=== PATIENT | female | born 1985 | race Two or more races ===

== ENCOUNTER 2020-08-04 13:59 | Emergency (ER) | payer OTHER, SELFPAY ==
--- NOTE | ~2020-08-04 | XR_ITS ---
EXAMINATION: XR CHEST CLINICAL INFORMATION: Cough. COMPARISON: 08/20/2018 chest radiographs. TECHNIQUE: Frontal view of the chest was obtained. FINDINGS: The lungs are clear. The heart and mediastinal structures are unremarkable. Mild mid thoracic dextro scoliosis is again seen without significant change. XR/XR chest 1V IMPRESSION: 1. No acute cardiopulmonary process. 2. Mild mid thoracic dextroscoliosis.
[2020-08-04 14:11] VITALS: BP 111/65; PULSE 68; RESP 16; TEMP 36.9; O2SAT 98; BMI 26.6
--- NOTE | 2020-08-04 15:14 | PC.NURSE ---
attempt to swab pt. this rn could not get swab into nose without pt hitting this rn and scratching this rn. 3-4 attempts made to obtain an accurate swab- unobtainable. pa aware states pt can attempt a self swab or she can be dc home d/t it being a non critical intervention.
--- NOTE | 2020-08-04 15:25 | ED.GENADULT ---
HPI - General Adult General Chief complaint: General Medical Stated complaint: covid symptoms Time Seen by Provider: 08/04/20 14:41 History of Present Illness HPI narrative: Patient complains of cough runny nose and body aches for 3 days, denies fever denies nausea vomiting MD complaint: Patient complains of cough runny nose and body aches Related Data Previous Rx's Medication Instructions Recorded azithromycin [Zithromax Z-Bassem] 250 mg PO DAILY 5 Days #6 tab 08/04/20 Allergies Allergy/AdvReac Type Severity Reaction Status Date / Time naproxen [From Naprosyn] Allergy Unknown NAUSEA & Unverified 03/10/20 15:29 VOMITING tramadol [TRAMADOL] Allergy Unknown ITCHING Unverified 03/10/20 15:29 Review of Systems Review of Systems: Positive for body aches runny nose and cough The patient denies fever chills dizziness weakness confusion no headache no neck pain no sore throat no chest pain no shortness of breath no abdominal pain no nausea no vomiting no diarrhea no burning with urination no rash Yes all other systems are reviewed and are negative [facility] Past Medical History Source: nursing notes reviewed Medical History (Updated 08/04/20 @ 15:27 by OLIVIA Wallace) No known health problems Social History Social History Alcohol intake: never Smoked in Last 30 Days: No Use of substances other than those prescribed or required for medical reasons: No Advance Directives: Yes Advance Directives Information Provided: No Advance Directives on File: No Physical Exam Vital Signs: Vital Signs: Last Vital Signs Temp 98.4 F 08/04/20 14:11 Pulse 68 08/04/20 14:11 Resp 16 08/04/20 14:11 BP 111/65 08/04/20 14:11 Pulse Ox 98 08/04/20 14:11 Body Mass Index 26.6 General appearance is no acute distress comfortable and cooperative The head is normocephalic atraumatic the eyes no redness no discharge The pharynx is clear with no redness exudate, mucous membranes moist Neck supple no lymphadenopathy Chest is clear to auscultation bilaterally with full symmetric breath sounds The heart rate regular no murmur Abdomen soft nontender Extremities no edema, no calf tenderness or swelling Neuro no motor deficit, no sensory deficit, gait is normal, speech an interaction are normal no facial asymmetry Course Course Course Narrative: Patient remains comfortable throughout visit, COVID test was negative but symptoms are still concerning for COVID Chest x-ray was negative Patient was discharged Medical Decision Making Lab Data Labs: Lab Results 08/04/20 Range/Units 15:19 Coronavirus (PCR) NEGATIVE (Negative) SARS-CoV-2 (PCR) Cancelled Influenza Type A (PCR) NEGATIVE (Negative) Influenza Type B (PCR) NEGATIVE (Negative) RSV RNA Qual (PCR) NEGATIVE (Negative) Discharge Plan Discharge Clinical Impression: Bronchitis Patient Disposition: Home, Self-Care Additional Instructions: X-ray looked normal It will be read by a radiologist later and I will call you if there is a change in the reading I will call you with COVID results which will be back within 2-3 hours There is a good chance to have COVID even if the test is negative as the test misses many cases We are treating with antibiotic for possibility of bronchitis Return any time any worse condition or any concerns Tylenol as needed for fever or pain Prescriptions: New azithromycin [Zithromax Z-Bassem] 250 mg tablet 250 mg PO DAILY 5 Days Qty: 6 RF: 0 Stand Alone Forms: Work/School Release Interventions: ED Discharge Assessment Last Done: 08/04/20 15:33 Discharge Date/Time: 08/04/20 15:33
--- NOTE | 2020-08-04 15:27 | PC.NURSE ---
pt offered self swab. pt states for staff to do it. jared pct attempted. partial r nare swab completed. pt unable to tolerate- grabbing at staff. sent per pa as is.
[2020-08-04 16:24] LABS: Influenza A PCR NEGATIVE (Negative); Influenza B PCR NEGATIVE (Negative); Resp Syncy Virus RNA Qual PCR NEGATIVE (Negative); SARS COV2 PCR INHOUSE NEGATIVE (Negative)
== END 2020-08-04 15:33 | disposition home or self-care (01) ==
PROVIDERS: Physician Assistant Medical; Emergency Provider Internal Medicine
DX: J40 Bronchitis, not specified as acute or chronic (principal); R05 Cough; M79.10 Myalgia, unspecified site; Z20.822 Contact with and (suspected) exposure to COVID-19
CPT/HCPCS: 0241U; 36415; 71045; 99283; U0003

== ENCOUNTER 2020-10-24 20:30 | Emergency (ER) | payer OTHER, SELFPAY ==
[2020-10-24 20:39] VITALS: BP 107/82; PULSE 82; RESP 16; TEMP 36.6; O2SAT 100; BMI 27.4
== END 2020-10-24 22:14 | disposition left against medical advice (07) ==
PROVIDERS: Emergency Provider Internal Medicine
DX: K92.1 Melena (principal)
CPT/HCPCS: 99281; 99282

== ENCOUNTER 2020-11-04 12:40 | Emergency (ER) | payer OTHER, SELFPAY ==
[2020-11-04 12:51] VITALS: BP 105/59; PULSE 66; RESP 18; TEMP 36.9; O2SAT 98; BMI 26.6
[2020-11-04 13:33] LABS: IDNOW Serial# 08D9AD1C; Strep A Nucleic Acid Negative (Negative)
[2020-11-04 13:41] LABS: COVID-19 Test Negative (Negative); IDNOW Serial# 9DD0AD1C
--- NOTE | 2020-11-04 13:59 | ED_ITS ---
HPI - General Adult General Chief complaint: Upper Respiratory Symptoms Stated complaint: sore throat Time Seen by Provider: 11/04/20 12:57 Source: patient Mode of arrival: ambulatory Limitations: no limitations History of Present Illness HPI narrative: Patient presents to ED for sore throat and body aches since yesterday. Patient states no coughing, fever, chills, headache, chest pain, or shortness of breath. Related Data Previous Rx's Medication Instructions Recorded azithromycin [Zithromax Z-Bassem] 250 mg PO DAILY 5 Days #6 tab 08/04/20 Allergies Allergy/AdvReac Type Severity Reaction Status Date / Time naproxen [From Naprosyn] Allergy Unknown NAUSEA & Verified 10/24/20 20:39 VOMITING tramadol [TRAMADOL] Allergy Unknown ITCHING Verified 10/24/20 20:39 Review of Systems Review of Systems: Yes all other systems are reviewed and are negative Constitutional: Constitutional: Reports as per HPI and Reports no additional constitutional complaints Eyes: Eyes: Reports as per HPI and Reports no additional eye complaints ENT: Reports system reviewed and no additional complaints, except as documented, Reports as per HPI and Reports sore throat Cardiovascular: Cardiovascular: Reports as per HPI and Reports no additional cardiovascular complaints Respiratory: Respiratory: Reports as per HPI and Reports no additional respiratory complaints Gastrointestinal: Gastrointestinal: Reports as per HPI and Reports no additional gastrointestinal complaints Genitourinary: Genitourinary: Reports no additional female genitourinary complaints and Reports as per HPI Musculoskeletal: Musculoskeletal: Reports no additional musculoskeletal complaints and Reports as per HPI Neurologic: Reports system reviewed and no additional complaints, except as documented and Reports as per HPI Psychiatric: Psychiatric: Reports no additional psychiatric complaints and Reports as per HPI [facility] Past Medical History Medical History (Updated 11/04/20 @ 17:40 by OLIVIA Carrera) No known health problems Social History Social History Alcohol intake: never Advance Directives: Yes Advance Directives Information Provided: No Advance Directives on File: No Patient : No Physical Exam Vital Signs: Vital Signs: Last Vital Signs Temp 98.5 F 11/04/20 12:51 Pulse 66 11/04/20 12:51 Resp 18 11/04/20 12:51 BP 105/59 L 11/04/20 12:51 Pulse Ox 98 11/04/20 12:51 Body Mass Index 26.6 Const: General: cooperative, healthy appearing, comfortable, no acute distress, well developed, alert, awake and Physically active Orientation/consciousness: patient oriented x3 HENMT: Head: Yes normal to inspection, Yes No palpable skull fracture present, Yes normocephalic, Yes atraumatic and Yes abrasion Eyes: General: appearance normal, both eyes and all related structures Neck: Neck: Yes normal visual inspection, Yes full ROM, Yes no lymphadenopathy, Yes no meningeal signs, Yes trachea midline, Yes supple and No tender Chest: Chest palpation & inspection: normal inspection of the chest and normal palpation of entire chest wall Resp: Effort & Inspection: normal respiratory effort and able to speak in complete sentences Auscultation: clear to auscultation bilaterally Cardio: Jugular venous distension: no JVD Heart sounds: S1 normal heart sound present and S2 normal heart sound present GI: Inspection: Yes normal to inspection and No abdominal wall ecchymosis Palpation (GI): Soft to palpation, not firm, nontender, no guarding and not rigid : General: No CVA tenderness Back/Spine/Pelvis: Back: no CVA tenderness, No CVA tenderness and No back tenderness Skin: General skin exam: no rashes or lesions noted and elasticity normal Neuro: General: patient oriented x3 and no meningeal signs Cranial nerves: Yes CN's II-XII intact bilaterally Extrem: General: Yes normal to inspection and Yes full ROM Psych: Appearance: grossly normal, well kempt and not disheveled Course Course Course Narrative: Sore throat. diagnosis is viral pharyngitis. patient refuse covid PCT. will do only abbot. Reevaluation(s) Reevaluation #1: Patient eloped from ED. Reevaluation #2: Patient was called and informed that covid and strep came back negative. Patient informed if symptoms worsened she should get retested in 72 hours or qaurantine Medical Decision Making [facility] Narrative Medical decision making narrative: Viral Pharyngitis Lab Data Labs: Lab Results 11/04/20 11/04/20 Range/Units 13:05 13:05 COVID-19 (DULCE MARIA) Negative (Negative) COVID-19 Clin Com See Note S. pyogenes GrpA DORYS Negative (Negative) Discharge Plan Discharge Clinical Impression: Acute viral pharyngitis Patient Disposition: Elopement Prescriptions: No Action azithromycin [Zithromax Z-Bassem] 250 mg tablet 250 mg PO DAILY 5 Days Qty: 6 RF: 0 Interventions: ED Discharge Assessment Last Done: 11/04/20 16:08 Discharge Date/Time: 11/04/20 16:10
== END 2020-11-04 16:10 | disposition left against medical advice (07) ==
PROVIDERS: Physician Assistant; Emergency Provider Emergency Medicine
DX: J02.8 Acute pharyngitis due to other specified organisms (principal); M79.10 Myalgia, unspecified site; Z79.899 Other long term (current) drug therapy; Z20.822 Contact with and (suspected) exposure to COVID-19
CPT/HCPCS: 36415; 87635; 87651; 99283

== ENCOUNTER 2021-06-06 12:45 | Outpatient (REF) | payer OTHER, SELFPAY | END 2021-06-06 12:46 | disposition home or self-care (01) | LOC: HO.LAB 12:45 | PROVIDERS: Visit Provider Internal Medicine | DX: Z20.822 Contact with and (suspected) exposure to COVID-19 (principal) | CPT/HCPCS: C9803; U0003; U0005 ==

== ENCOUNTER 2021-08-28 22:48 | Emergency (ER) | payer OTHER, SELFPAY ==
--- NOTE | 2021-08-28 | ECG_ITS ---
Test Reason : CHEST PAIN Blood Pressure : / mmHG Vent. Rate : 059 BPM Atrial Rate : 059 BPM P-R Int : 206 ms QRS Dur : 098 ms QT Int : 456 ms P-R-T Axes : 059 055 035 degrees QTc Int : 451 ms Sinus bradycardia Otherwise normal ECG When compared with ECG of 18-AUG-2019 23:33, No significant change was found Referred By: Generic ED Physician Electronically Signed By:AMA HUSAIN MD
[2021-08-28 23:02] VITALS: BP 136/74; PULSE 68; O2SAT 100
[2021-08-28 23:09] VITALS: BP 109/35; PULSE 66; RESP 18; TEMP 36.5; O2SAT 98; BMI 24.1
[2021-08-28 23:31] LABS: MANUAL DIFF FLAG NO
[2021-08-28 23:37] LABS: Basophils Percent Auto 0.3 % (0-2); Eosinophils Absolute Auto 0.2 X10*3/uL (0.0-0.4); Eosinophils Percent Auto 2.4 % (0-4); Hematocrit 34.9 % (37.0-47.0); Hemoglobin 10.9 g/dl (12.0-16.0); Imm Gran Abs Auto 0.02 X10*3/uL (0.00-0.03); Imm Gran Pct Auto 0.3 % (0.0-0.4); Lymphocytes Absolute Auto 2.7 X10*3/uL (1.2-4.9); Lymphocytes Percent Auto 35.1 % (20-40); Mean Corpuscular HGB Conc 31.2 g/dl (31.0-35.0); Mean Corpuscular Hemoglobin 26.9 pg (27.0-33.0); Mean Corpuscular Volume 86.2 fL (80.0-98.0); Mean Platelet Volume 10.5 fL (9.4-12.3); Monocytes Absolute Auto 0.7 X10*3/uL (0.1-1.2); Monocytes Percent Auto 9.2 % (2-11); Neutrophils Percent Auto 52.7 % (45-73); Platelet Count 275 X10*3/uL (160-400); Red Blood Count 4.05 X10*6/uL (4.20-5.50); Red Cell Distribution Width 12.3 % (11.0-16.0); White Blood Count 7.6 X10*3/uL (4.8-10.8)
[2021-08-28 23:53] LABS: Anion Gap 10 (12-20); Blood Urea Nitrogen 11 mg/dL (9-16); Calcium 8.7 mg/dL (8.4-10.2); Carbon Dioxide 29 mmol/L (22-29); Chloride 105 mmol/L (96-108); Estimated Glomerular Filt Rate > 60; Glucose Random 112 mg/dL (60-115); Potassium 3.9 mmol/L (3.3-5.1); Sodium 140 mmol/L (135-145)
[2021-08-28 23:59] LABS: Troponin-I High Sensitivity < 3.5 ng/L (<3.5-17.0)
== END 2021-08-29 02:36 | disposition left against medical advice (07) ==
LOC: HO.ED 08-29 02:33
PROVIDERS: Emergency Provider Emergency Medicine
DX: R07.9 Chest pain, unspecified (principal); R20.0 Anesthesia of skin
CPT/HCPCS: 36415; 80048; 84484; 85025; 93005; 99283

== ENCOUNTER 2023-03-28 07:36 | Outpatient (AMB) | payer OTHER, SELFPAY ==
[2023-03-28 07:53] VITALS: BP 102/60; BMI 26.6
--- NOTE | 2023-03-28 07:53 | A.OFFVIS_ITS ---
Intake Vital Signs 03/28/23 07:53 Height 5 ft 5 in Weight 160 lb BMI 26.6 BP 102/60 Intake Visit Reasons: Preg Consult/ok per industrial hygiene engineer Note: The patient agreed to use of a medical receptionist assistant during this encounter. Scribed for LYNDON Cason by Evelyne Barnes medical receptionist assistant, on 03/28/2023 at 8:00 am EST. Clinical Safety Specialist Required: No Information Interpreted: non-clinical & clinical Accompanied by: Self / Same As Patient Allergies naproxen [From Naprosyn] Allergy (Unknown, Verified 03/28/23 07:57) NAUSEA & VOMITING tramadol [TRAMADOL] Allergy (Unknown, Verified 03/28/23 07:57) ITCHING Is last menstrual period known: Yes Last menstrual period: 02/02/23 HPI HPI Comments History of Present Illness Details She is here today for a consult. LMP x1 day which is not her usual. Reports this is a unplanned and is accepting of keeping it. Denies taking PNV. Admits vaginal odor, pelvic cramping and spotting. Admits good appetite and hydrating well with water. Last she was induced; denies any other complications in her past pregnancies Reports taking Percocet in the past after having a back injury and admits taking Suboxone 8mg, that is not prescribed. Reports she has stopped using Marijuana since finding out she was . Denies any cervical surgeries in the past. 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 Positive test Missed menses No known health problems Surgical History (Updated 03/28/23 @ 07:59 by Mariann Medina CMA) History of lung surgery Social History (Updated 03/28/23 @ 08:00 by Mariann Medina CMA) Household Members: Children Housing: Apartment Alcohol intake: never Patient Tobacco Use Status: Current everyday Tobacco user Cigarettes Per Day: 5 Current occupational status: unemployed Sexual orientation: Straight/Heterosexual Gender identity: Female Female Reproductive History Menstrual Date of last menstrual period: 02/02/23 Total pregnancies: 5 Full term: 2 Number of Living Children: 2 Ab induced: 2 Physical Exam Vital Signs: Last Vital Signs BP 102/60 03/28/23 07:53 BMI result Body Mass Index 26.6 Const General: cooperative, healthy appearing, comfortable, no acute distress, well developed, alert and awake Other: cervix: post-LEEP appearance General: Yes bladder normal to palpation External Female Exam: normal external appearance and normal appearance of the urethra Speculum Exam - Vagina: normal appearance of the vagina, normal palpation and abnormal vaginal discharge white (thin) and frothy Speculum Exam - Cervix: normal appearance of the cervix and normal palpation Bimanual exam- vagina & uterus: normal bimanual exam, normal palpation, bladder normal to palpation, normal palpation and enlarged Bimanual Exam- Adnexa, other: normal adnexae and no masses Results AMB Test Urine AMB Test Urine Positive Last Edit by Mariann Medina CMA on 09:14 AMB Test Urine previously reported as Negative Mariann eMdina 03/28/23 09:14 Results Reviewed Results Reviewed: Laboratory Last Values [facility] Positive 03/28/23 08:03 Assessment & Plan Assessment & Plan (1) Missed menses: Code(s): N92.6 - Irregular menstruation, unspecified Plan: Discussed: OB US and labs ordered. Follow up in person for results. PNV sent to pharmacy. Advised to eat healthy and stay hydrated. Reviewed when to call for any VB or abdominal pain. Treatment for Suboxone use, follow up for care. Discussed to call the service here for any emergencies/deliveries to be directed to [facility]. All of her questions and concerns were addressed to the best of my ability and shared decision making. She is agreeable to plan of care. (2) Vaginal odor: Code(s): N89.8 - Other specified noninflammatory disorders of vagina Plan: BV testing and GC/CT panel done today. Await results and treat accordingly. (3) Positive test: Code(s): Z32.01 - Encounter for test, result positive (4) Pelvic pain affecting in first trimester, antepartum: Code(s): O26.891 - Other specified related conditions, first trimester; R10.2 - Pelvic and perineal pain Orders: Orders HCG Quantitative Today N92.6 - Irregular menstruation, unspecified, Z78.9 - Other specified health status Bacterial Vaginosis Panel Today Z32.01 - Encounter for test, result positive AMB HCG Urine Test Today Z32.02 - Encounter for test, result negative CT NG by PCR Today Z32.01 - Encounter for test, result positive US OB limited 04/04/23 O36.80X0 - with inconclusive viability, not applicable or unspecified Medications: New PNV,calcium 48-kvap-vqmky acid 27 mg iron- 1 mg ( Vitamins Plus Low Iron) 1 tab PO DAILY 90 tabs 4RF Coding Level of Care Code Est Pt Level 3 (14079) Diagnoses Missed menses N92.6 Vaginal odor N89.8 Positive test Z32.01 Pelvic pain affecting in first trimester, antepartum O26.891; R10.2
== END 2023-03-28 08:37 | disposition home or self-care (01) ==
PROVIDERS: PCP Internal Medicine; Visit Provider Advanced Practice Midwife
DX: N92.6 Irregular menstruation, unspecified (principal); N89.8 Other specified noninflammatory disorders of vagina; Z32.01 Encounter for pregnancy test, result positive; O26.891 Other specified pregnancy related conditions, first trimester; R10.2 Pelvic and perineal pain; Z32.02 Encounter for pregnancy test, result negative
CPT/HCPCS: 99213

== ENCOUNTER → 2023-03-28 07:36 | Outpatient (BNVA) | payer OTHER, SELFPAY | PROVIDERS: PCP Internal Medicine; Visit Provider Advanced Practice Midwife ==

== ENCOUNTER 2023-03-28 08:40 | Outpatient (REF) | payer OTHER, SELFPAY | END 2023-03-28 08:41 | disposition home or self-care (01) | LOC: HO.US 08:40 | PROVIDERS: PCP Internal Medicine; Visit Provider Advanced Practice Midwife | DX: Z34.91 Encounter for supervision of normal pregnancy, unspecified, first trimester (principal); Z3A.01 Less than 8 weeks gestation of pregnancy | CPT/HCPCS: 0353U; 76801; 76817; 81025; 87480; 87510; 87660; 99212 ==

== ENCOUNTER 2023-03-30 22:06 | Emergency (ER) | payer OTHER, SELFPAY ==
[2023-03-30 22:23] VITALS: BP 108/68; PULSE 83; RESP 18; TEMP 36.5; O2SAT 97; BMI 26.6
[2023-03-30 22:45] VITALS: BP 91/30; PULSE 72; RESP 18; TEMP 36.7; O2SAT 100
--- NOTE | 2023-03-30 22:48 | ED.PREGNANCY ---
HPI - General Chief complaint: Vaginal Bleeding Stated complaint: Vaginal bleeding, 8 weeks Time Seen by Provider: 03/30/23 22:41 Source: patient Mode of arrival: ambulatory Limitations: no limitations History of Present Illness HPI Narrative: Patient comes to the emergency room complaining of vaginal bleeding. Patient states that she is a at 6 weeks of gestational age. Patient states that 2 days ago she went to see her primary care physician/OB Gyne. An ultrasound was done, patient was told that the heart rate was low and he had a repeat ultrasound in 7 days. Today, patient was feeling well, at this time has no abdominal pain. States that she went to use the restroom, and she noted that she was passing blood clots. Related Data Home Medications Medication Instructions Recorded Confirmed No Known Home Meds 03/28/23 03/28/23 Previous Rx's Medication Instructions Recorded vitamin with calcium 1 tab PO DAILY #90 tabs 03/28/23 no.72-iron 27 mg-folic acid 1 mg tablet ( Vitamins Plus Low Iron) Allergies Allergy/AdvReac Type Severity Reaction Status Date / Time naproxen [From Naprosyn] Allergy Unknown NAUSEA & Verified 03/30/23 22:23 VOMITING tramadol [TRAMADOL] Allergy Unknown ITCHING Verified 03/30/23 22:23 Review of Systems Review of Systems: Constitutional : No Weight loss, No Fever, No Chills, No Night Sweats, No Fatigue, No Malaise ENT/Mouth : No Hearing loss, No Ear Pain, No Nasal Congestion, No Sinus Pain, No Hoarseness, No sore throat, No Rhinorrhea, No Swallowing Difficulty Eyes: No Eye Pain, No Swelling, No Redness, No Foreign Body, No Discharge, No Vision Changes Cardiovascular : No Chest Pain, No SOB, No Dyspnea on Exertion, No Orthopnea, No Edema, No Palpitations Respiratory : No Cough, No Sputum, No Wheezing, No Smoke Exposure, No Dyspnea Gastrointestinal : No Nausea, No Vomiting, No Diarrhea, No Constipation, No abdominal Pain, No Hematochezia, No Melena Genitourinary : Complaining of vaginal bleeding, No Dysuria, No Urinary Frequency, No Hematuria, No Urinary Incontinence, No Urgency, No Flank Pain, No Urinary Flow Changes, No Hesitancy Musculoskeletal : No joint pain, No Myalgias, No Joint Swelling Skin : No Skin Lesions, No rash Neuro : No Weakness, No Numbness, No Paresthesias, No Loss of Consciousness, No Dizziness, No Headache Psych : No Anxiety/Panic, No Depression, No SI/HI/AH/VH, No Social Issues, Heme/Lymph: No Bruising, No Bleeding,No Lymphadenopathy Endocrine : No Polyuria, No Polydipsia, No Temperature Intolerance [facility] Past Medical History Medical History 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 Positive test Missed menses No known health problems Surgical History (Updated 03/28/23 @ 07:59 by Mariann Medina CMA) History of lung surgery Social History Social History (Updated 03/28/23 @ 08:00 by Mariann Medina CMA) Household Members: Children Housing: Apartment Alcohol intake: never Patient Tobacco Use Status: Current everyday Tobacco user Cigarettes Per Day: 5 Smoked in Last 30 Days: Yes Use of substances other than those prescribed or required for medical reasons: No Advance Directives: No Advance Directives Information Provided: Yes Patient : Yes Current occupational status: unemployed Sexual orientation: Straight/Heterosexual Gender identity: Female Physical Exam Vital Signs: Vital Signs: Last Vital Signs Temp 98.0 F 03/31/23 00:04 Pulse 71 03/31/23 00:04 Resp 16 03/31/23 00:04 BP 101/49 L 03/31/23 00:04 Pulse Ox 99 03/31/23 00:04 O2 Del Method Room Air 03/31/23 00:04 BMI result Body Mass Index 26.6 Const: Other: Appearance: Alert. Oriented X3. No acute distress. Well-appearing Eyes: Pupils equal, round and reactive to light. ENT: Pharynx normal. Neck: Normal inspection. Neck supple. No lymph nodes noted. No crepitus CVS: Normal heart rate and rhythm. Pulses normal. Normal S1 and S2 Respiratory: No respiratory distress. Breath sounds normal. No Wheezing. No rales Abdomen: Soft and nontender. No rigidity. No distention. Skin: Skin warm and dry. Normal skin color. Normal skin turgor. Extremities: No lower extremity edema. No Lacerations. No Rash Neuro: Oriented X 3. No motor deficit. No sensory deficit. Moving all extremities. No slurred speech. CN 2 through 12 grossly intact Psych: calm, cooperative, normal affect Course Course Course Narrative: -all off of patient's labs and ultrasound pending Medical Decision Making Medical Decision Making MDM Narrative: -mental position of labs, normal white blood cell count, chemistry within normal limits, LFTs normal, hCG 2907 -ABO: O positive, RhoGAM not indicated -ultrasound report, no significant change compared to ultrasound from 2 days ago. -on pelvic exam, seems that services approximately 2-3 mm questionably open, discussed with the patient that it is possible that patient may have a spontaneous miscarriage versus continuing with the . However, it is concerning that the heart rate is low -patient states she has an appointment next week with her OB Gyne -discussed with the patient if she has any significant vaginal bleeding, to return to the emergency room. Differential Diagnosis Differential Diagnoses: The differential diagnosis associated with the presentation includes (Threatened ,) Lab Data 03/30/23 23:21 03/30/23 23:21 Labs: Lab Results 03/30/23 03/30/23 Range/Units 23:21 23:46 WBC 10.1 (4.8-10.8) X10*3/uL RBC 3.60 L (4.20-5.50) X10*6/uL Hgb 10.0 L (12.0-16.0) g/dl Hct 31.0 L (37.0-47.0) % MCV 86.1 (80.0-98.0) fL MCH 27.8 (27.0-33.0) pg MCHC 32.3 (31.0-35.0) g/dl RDW 12.5 (11.0-16.0) % Plt Count 274 (160-400) X10*3/uL MPV 10.3 (9.4-12.3) fL Immature Gran % (Auto) 0.3 (0.0-0.4) % Neut % (Auto) 56.5 (45-73) % Lymph % (Auto) 31.0 (20-40) % [place] % (Auto) 9.5 (2-11) % Eos % (Auto) 2.3 (0-4) % Baso % (Auto) 0.4 (0-2) % Lymph # (Auto) 3.1 (1.2-4.9) X10*3/uL [place] # (Auto) 1.0 (0.1-1.2) X10*3/uL Eos # (Auto) 0.2 (0.0-0.4) X10*3/uL Baso # (Auto) 0.0 (0.0-0.2) X10*3/uL Abs Immat Gran (auto) 0.03 (0.00-0.03) X10*3/uL Absolute Neuts (auto) 5.7 (2.0-8.3) x10*3/uL Absolute Nucleated RBC 0.000 (0.0-0.012) X10*3/uL Nucleated RBC % (auto) 0.0 (0.0-0.2) /100WBC Sodium 139 (135-145) mmol/L Potassium 3.7 (3.3-5.1) mmol/L Chloride 107 (96-108) mmol/L Carbon Dioxide 25 (22-29) mmol/L Anion Gap 11 L (12-20) BUN 9 (9-16) mg/dL Creatinine 0.63 (0.5-1.4) mg/dL Estim Creat Clear Calc 119.6 Estimated GFR > 60 Random Glucose 80 (60-115) mg/dL Calcium 8.5 (8.4-10.2) mg/dL Total Bilirubin 0.2 (0.0-1.0) mg/dL AST 16 (5-31) U/L ALT 11 (0-31) U/L Alkaline Phosphatase 51 (39-117) U/L Total Protein 6.2 L (6.5-8.0) g/dL Albumin 3.2 L (3.5-5.0) g/dL Beta HCG, Quant 2917 mIU/mL Urine Color Yellow Urine Appearance Clear Urine pH 7.5 (5.0-9.0) Ur Specific [place] 1.015 (1.005-1.025) Urine Protein Negative (Neg-Trace) mg/dL Urine Glucose (UA) Negative (Negative) mg/dL Urine Ketones Negative (Negative) mg/dL Urine Blood Small (1+) H (Negative) Urine Nitrite Negative (Negative) Ur Leukocyte Esterase Moderate (2+) H (Negative) Urine RBC 0-2 (0-2) /HPF Urine WBC 6-10 (0-5) /HPF Ur Squamous Epith Cells 0-2 (0-2) /HPF Urine Bacteria None Seen (None Seen) Hyaline Casts 0-2 (0-2) /LPF Blood Type O Positive Discharge Plan Discharge Clinical Impression: Threatened miscarriage Patient Disposition: Home, Self-Care Instructions: Threatened Miscarriage (ED) Additional Instructions: Please follow-up with your primary care physician and OBGYN tomorrow. If you have any worsening or new symptoms, please return to the emergency room or call 911 Prescriptions: No Action No Known Home Meds Vitamin Plus Low Iron 27 mg iron- 1 mg tablet 1 tab PO DAILY Qty: 90 4RF
[2023-03-31 00:04] VITALS: BP 101/49; PULSE 71; RESP 16; TEMP 36.7; O2SAT 99
--- NOTE | 2023-03-31 01:00 | PC.NURSE ---
at bedside discussing pt care.
--- NOTE | 2023-03-31 01:17 | PC.NURSE ---
this rn assumed care. respirations even and unlabored. pt reports waking up yesterday morning with vaginal spotting, pt reports being 8 weeks at this time. pt reports filling on small pad, denies pain at this time. abdomen soft non tender to touch.
[2023-04-01 08:49] LABS: BV Int Neg Control Negative (Negative); BV Int Pos Control Positive (Positive)
== END 2023-03-31 01:19 | disposition home or self-care (01) ==
PROVIDERS: Emergency Provider Emergency Medicine; PCP Internal Medicine
DX: O20.0 Threatened abortion (principal); O36.8310 Maternal care for abnormalities of the fetal heart rate or rhythm, first trimester, not applicable or unspecified; O99.331 Smoking (tobacco) complicating pregnancy, first trimester; F17.210 Nicotine dependence, cigarettes, uncomplicated; Z3A.01 Less than 8 weeks gestation of pregnancy
CPT/HCPCS: 0353U; 36415; 76801; 76817; 80053; 81001; 84702; 85025; 86900; 86901; 87086; 87480; 87510; 87660; 99284

== ENCOUNTER 2023-04-02 21:57 | Emergency (ER) | payer OTHER, SELFPAY ==
[2023-04-02 22:23] VITALS: BP 111/56; PULSE 83; RESP 16; TEMP 36.8; O2SAT 100; BMI 26.9
--- NOTE | 2023-04-02 23:34 | MHC.EDTECH ---
Labs and Type N Screen were obtained and sent to lab, patient was banded, and placed back to waiting room.
== END 2023-04-03 01:21 | disposition left against medical advice (07) ==
PROVIDERS: Emergency Provider Emergency Medicine; PCP Internal Medicine
DX: O26.91 Pregnancy related conditions, unspecified, first trimester (principal); Z3A.08 8 weeks gestation of pregnancy; Z79.899 Other long term (current) drug therapy
CPT/HCPCS: 36415; 80048; 84702; 85025; 86850; 86900; 86901; 99282; 99283

== ENCOUNTER 2023-04-03 08:54 | Outpatient (REF) | payer OTHER, SELFPAY | END 2023-04-03 08:55 | disposition home or self-care (01) | LOC: HO.US 08:54 | PROVIDERS: Absent Provider Advanced Practice Midwife; Visit Provider Obstetrics & Gynecology | DX: O20.9 Hemorrhage in early pregnancy, unspecified (principal); Z78.9 Other specified health status | CPT/HCPCS: 36415; 76801; 76817; 84702; 99212 ==

== ENCOUNTER 2023-04-03 09:16 | Outpatient (REF) | payer OTHER, SELFPAY | END 2023-04-03 09:17 | disposition home or self-care (01) | LOC: HO.US 09:16 | PROVIDERS: PCP Internal Medicine; Visit Provider Advanced Practice Midwife | DX: Z13.89 Encounter for screening for other disorder (principal) ==

== ENCOUNTER 2023-04-03 11:02 | Outpatient (AMB) | payer OTHER, SELFPAY ==
[2023-04-03 11:03] VITALS: BP 100/60
--- NOTE | 2023-04-03 11:03 | MHC.OFFVIS ---
Intake Vital Signs 04/03/23 11:03 Height 5 ft 5 in BP 100/60 Intake Visit Reasons: Follow u/s and hcg Allergies naproxen [From Naprosyn] Allergy (Unknown, Verified 04/03/23 11:03) NAUSEA & VOMITING tramadol [TRAMADOL] Allergy (Unknown, Verified 04/03/23 11:03) ITCHING HPI HPI Comments History of Present Illness Details Presenting at 7 weeks of gestation with vaginal bleeding passage of blood clots . Pelvic cramping and bleeding slowed down over the last few hours HCG done on 03/30 was 2117, repeated on 04/02 was 1691 and repeated today dropped to 1176 Ultrasound done on 03/30 showed the following: IMPRESSION: 1. Single intrauterine gestation. heart rate 87 bpm which is low. This is similar to the prior exam of March 28, 2023. Continued follow-up recommended. 2. [place]-rump length 0.53 cm. This correlates to dating of 6 weeks 3 days. NORBERTO 11/20/2023. 3. 3. Enlarged yolk sac. Ultrasound done today showed the following: On transabdominal imaging there is an nonvisualization of distal sac, pole or yolk sac. No heart beat seen either. Incidental finding of a small fibroid measuring 2.1 x 1.1 x 1.7 cm Both ovaries are not visualized as well. US/US OB pelvic and transvaginal IMPRESSION: No intrauterine gestational sac or pole seen at this time. Small uterine fibroid measuring 2.1 x 1.3 x 1.71 cm. 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 Positive test Missed menses No known health problems Surgical History (Updated 03/28/23 @ 07:59 by Mariann Medina CMA) History of lung surgery Social History (Updated 03/28/23 @ 08:00 by Mariann Medina CMA) Household Members: Children Housing: Apartment Alcohol intake: never Patient Tobacco Use Status: Current everyday Tobacco user Cigarettes Per Day: 5 Current occupational status: unemployed Sexual orientation: Straight/Heterosexual Gender identity: Female Review of Systems Const All systems reviewed & are unremarkable except as noted in HPI and below Physical Exam Vital Signs: Last Vital Signs BP 100/60 04/03/23 11:03 General: Yes no CVA tenderness External Female Exam: normal external appearance and normal appearance of the urethra Speculum Exam - Vagina: normal appearance of the vagina, normal palpation, no lesions, no masses and other (Tissues per vagina sent to pathology) Speculum Exam - Cervix: normal appearance of the cervix, normal palpation, no lesions, no masses, nontender and Other cervical findings present (No evidence of active bleeding) Bimanual exam- vagina & uterus: normal bimanual exam, normal palpation, uterine size normal, normal palpation, uterine shape normal, No Cervical tenderness present and non-tender Bimanual Exam- Adnexa, other: normal adnexae Back/Spine/Pelvis Back: no CVA tenderness Assessment & Plan Assessment & Plan (1) Complete : Code(s): O03.9 - Complete or unspecified spontaneous without complication Plan: Discussed with the patient finding on pelvic exam, tissues and vagina no evidence of bleeding coming out of the cervix consistent with complete . Will send tissues to the pathology. Signs and symptoms of incomplete were given to the patient. Instructions given the patient to call or go to emergency room in case of vaginal bleeding, pelvic cramping, passage of blood clots, fever above 100.4 or any other concerns otherwise schedule a follow-up appointment in the office in 2 weeks with follow-up hCG quantitative;will follow hCG to non levels. All questions answered, the patient verbalized understanding Coding Level of Care Code Est Pt Level 3 (44111) Diagnoses Complete O03.9
== END 2023-04-03 11:39 | disposition home or self-care (01) ==
LOC: HO.HWS 11:02
PROVIDERS: PCP Internal Medicine; Visit Provider Obstetrics & Gynecology
DX: O03.9 Complete or unspecified spontaneous abortion without complication (principal)
CPT/HCPCS: 99213

== ENCOUNTER 2023-04-03 11:33 | Outpatient (REF) | payer OTHER, SELFPAY | END 2023-04-03 11:34 | disposition home or self-care (01) | LOC: HO.LNP 11:33 | PROVIDERS: Visit Provider Obstetrics & Gynecology | DX: O03.9 Complete or unspecified spontaneous abortion without complication (principal) | CPT/HCPCS: 88305 ==

== ENCOUNTER 2023-04-10 13:27 | Outpatient (REF) | payer OTHER, SELFPAY ==
[2023-04-10 14:09] LABS: HCG Quantitative 58 mIU/mL
== END 2023-04-10 13:28 | disposition home or self-care (01) ==
LOC: HO.LAB 13:27
PROVIDERS: PCP Internal Medicine; Visit Provider Obstetrics & Gynecology
DX: O03.9 Complete or unspecified spontaneous abortion without complication (principal)
CPT/HCPCS: 36415; 84702

== ENCOUNTER 2023-04-19 10:05 | Outpatient (AMB) | payer OTHER, SELFPAY ==
[2023-04-19 10:16] VITALS: BP 124/60; PULSE 78; RESP 17; O2SAT 97; BMI 25.9
--- NOTE | 2023-04-19 10:16 | MHC.PC.OV ---
Vital Signs 04/19/23 10:16 Height 5 ft 5 in Weight 155 lb 6 oz BMI 25.9 BP 124/60 Blood Pressure Location Lt brachial Position Sitting Respiration 17 Pulse 78 Pulse Source Pulse Oximeter Pulse Oximetry (%) 97 Oxygen Delivery Method Room Air Intake Visit Reasons: New patient-Requesting physical Intake Note: Patient is a new patient here to establish care for Sore throat. Pt has not seen a primary care for more than 5 years. Tobacco Cloth Reclaimer Required: No Accompanied by: Self / Same As Patient Allergies naproxen [From Naprosyn] Allergy (Unknown, Verified 04/19/23 10:52) NAUSEA & VOMITING tramadol [TRAMADOL] Allergy (Unknown, Verified 04/19/23 10:52) ITCHING Medication List - Last Reconciled 04/19/23 by Uri Rucker MD No Known Home Meds Tobacco use date assessed: 04/19/23 Dental Screening Dental Screen Date: 04/19/23 Did you have a dental visit in the last 12 months?: No Did you have a dental problem in the last 6 months where you did not have access to dental care?: No Was dental information given to patient?: Patient has dentist HPI New patient-Requesting physical HPI Details Patient comes in today to establish care - is a new patient to the practice States that she has not seen a doctor in over 5 years; has not had a PCP for as long as she can remember She was a patient of our practice back in the early 1999 but was discharged sometime in 2009 for a broke drug contract - tested negative for the Rx that she was supposedly on States that she is presently healthy overall with no significant past medical history or issues although she did suffer a miscarriage a couple of weeks ago - is seeing and following up with Dr. Dudley for this issue States that she has 2 grown children over 18 yrs old and they were all looking forward to having another addition to the family and are feeling sad about her losing the baby Adds that she tested positive for trichomonas infection earlier this month and [facility] Relates that she currently feels okay and has no other acute issues or complaints other than a mild sore throat that she woke up with this morning She denies any fever, headaches or dizziness Denies any recent cough/cold symptoms; denies any dysphagia Denies any chest pains, no SOB No nausea/vomiting, no abdominal pain No change in bowel habits noted Denies any acute urinary symptoms PFSH Medical History 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 Positive test Missed menses Surgical History History of lung surgery Family History (Updated 04/19/23 @ 12:00 by Uri Rucker MD) Other Family history non-contributory Social History Household Members: Children Housing: Apartment Alcohol intake: never Patient Tobacco Use Status: Current everyday Tobacco user Tobacco use type: Cigarette Cigarettes Per Day: 5 e-Cigarette/Vaping Use: Never Used service: No Current occupational status: unemployed Sexual orientation: Straight/Heterosexual Gender identity: Female Cognitive needs: No Hearing needs: No Vision needs: No Questionnaire PHQ-9 Over the last 2 weeks, how often have you been bothered by any of the following problems? 1. Little interest or pleasure in doing things: not at all 2. Feeling down, depressed, or hopeless: not at all 3. Trouble falling or staying asleep, or sleeping too much: not at all 4. Feeling tired or having little energy: not at all 5. Poor appetite or overeating: not at all 6. Feeling bad about yourself - or that you are a failure or have let yourself or your family down: not at all 7. Trouble concentrating on things, such as reading the newspaper or watching television: not at all 8. Moving or speaking so slowly that other people could have noticed. Or the opposite - being so fidgety or restless that you have been moving around a lot more than usual: not at all 9. Thoughts that you would be better off or of hurting yourself in some way: not at all Total score: 0 Depression Screening Interpretation: Negative Depression Screening Done: Yes 52671 - PHQ-9 Billing: Yes Source: Developed by Drs. Selvin Mendiola, Miracle Jones, Karan Allen and colleagues, with an educational hortencia from [employer]. Thrive Questionnaire Date Thrive assessed: 04/19/23 I am a: Patient What is your living situation today?: I have a steady place to live Within the past 12 months, did the food you bought not last and you didn't have the money to get more?: Never true Within the past 12 months, did you worry whether your food would run out before you got money to buy more?: Never true Do you have trouble paying for medicines?: No Do you have trouble getting transportation to medical appointments?: No Do you have trouble paying your heating and electricity bill?: No Do you have trouble taking care of your child, family member or friend?: No Do you have trouble with day-to-day activities such as bathing, preparing meals, shopping, managing finances, etc.?: No Are you currently unemployed and looking for a job?: No Are you interested in more education?: No Please select the resources that you would like help with: None Currently or been in a relationship where the following occur: no concerns reported AUDIT C Alcohol Use Questionnaire (AUDIT-C) 1. How often do you have a drink containing alcohol?: Monthly or less 2. How many drinks containing alcohol do you have on a typical day when you are drinking?: 1 or 2 3. How often do you have six or more drinks on one occasion?: Never Total Score: 1 Score Reviewed/Action Taken: Yes JANAK-7 AMB Questionnaire JANAK-7 Date JANAK - 7 assessed: 04/19/23 Feeling nervous, anxious, or on edge: 0 = Not at all Not being able to stop or control worryin = Not at all Worrying too much about different things: 0 = Not at all Trouble relaxin = Not at all Being so restless that it is hard to sit still: 0 = Not at all Becoming easily annoyed or irritable: 0 = Not at all Feeling afraid as if something awful might happen: 0 = Not at all Total JANAK-7 score (0-4 normal; 5-9 mild; 10-14 moderate; 15-21 severe): 0 Source: Developed by Drs. Selvin Mendiola, Miracle Jones, Karan Allen and colleagues, with an educational hortencia from [employer]. JANAK-7 Assessment Billing JANAK-7 Assessment Tool: JANAK-7 Assessment 73374 Review of Systems Const Denies chills, Denies fatigue, Denies fever(s), Denies headache(s) and Denies malaise Eyes Denies blurry vision, Denies change in vision, Denies irritation and Denies itchy eyes ENT Denies dysphagia, Denies dizziness, Denies otalgia, Denies headache(s), Denies nasal congestion, Denies neck pain, Denies odynophagia, Denies sinus pain and Denies sore throat Card Denies chest pain, Denies rapid heart rate, Denies irregular heart rhythm, Denies palpitations and Denies dyspnea Resp Denies chest congestion, Denies cough, Denies dyspnea and Denies wheezing GI Denies abdominal pain, Denies bloating, Denies constipation, Denies dysphagia, Denies heartburn, Denies diarrhea, Denies nausea, Denies odynophagia and Denies vomiting Denies hematuria, Denies urinary frequency, Denies dysuria, Denies urinary incontinence and Denies urinary urgency Musc Denies back pain, Denies arthralgias, Denies joint swelling, Denies muscle weakness and Denies neck pain Skin/Breast Denies breast pain, Denies breast mass, Denies change in pigmentation, Denies lesions, Denies rash and Denies unusual bruising Neuro Denies dizziness, Denies headache(s) and Denies paresthesias Psych Denies anxiety and Denies depression Endo Denies fatigue and Denies palpitations Saul/Lymph Denies easy bruising Aller/Immun Denies itchy eyes and Denies wheezing Physical exam (Primary Care) Vital Signs: Last Vital Signs Pulse 78 04/19/23 10:16 Resp 17 04/19/23 10:16 BP 124/60 04/19/23 10:16 Pulse Ox 97 04/19/23 10:16 Oxygen Delivery Method Room Air 04/19/23 10:16 BMI result Body Mass Index 25.9 Tobacco/Smoking Status: Tobacco use Status Tobacco use date assessed 04/19/23 04/19/23 10:27 Patient Tobacco Use Status Current everyday Tobacco 04/19/23 10:27 Tobacco use type Cigarette 04/19/23 10:27 e-Cigarette/Vaping Use Never Used 04/19/23 10:32 PHQ-9: PHQ-9 Score PHQ-9: Total score 0 04/19/23 10:32 Depression Screening Interpretation: Negative Thrive Assessment: Date of Thrive Assessment Date Thrive assessed 04/19/23 04/19/23 10:32 Currently or been in a relationship where the following occur: no concerns reported Const General: no acute distress, alert and awake Orientation/consciousness: patient oriented x3 [facility] Head: Yes normocephalic and Yes atraumatic Ears: external ears normal, TM's normal bilaterally and EAC's normal General nose exam: No nasal discharge present Face and sinus: Yes normal facial exam and Yes sinuses nontender Teeth and gingiva: dentition normal Throat: Yes posterior oropharynx normal and Yes tonsils normal (no TP congestion) Eyes Eyelids: Yes eyelids normal Conjunctivae: conjunctivae normal Pupils: Equal, round and reactive pupils present EOM: EOMs intact bilaterally Neck Neck: Yes no lymphadenopathy and Yes supple Thyroid: Thyroid normal (but slightly more prominent than normal diffusely) and nontender Resp Auscultation: clear to auscultation bilaterally, no rales and no wheezes Cardio Rate: regular rate Rhythm: regular rhythm Heart sounds: no murmurs GI Palpation (GI): Soft to palpation, nontender and No hepatosplenomegaly present Auscultation: normal bowel sounds General: Yes no CVA tenderness Back/Spine/Pelvis Back: no CVA tenderness Thoracic/Lumbar Spine: thoracic and lumbar spine normal to inspection Skin Lesions: no lesions Rashes: no rashes Neuro General: patient oriented x3, moves all extremities, no focal motor deficits and CN's II-XI intact bilaterally Cranial nerves: Yes Equal, round and reactive pupils present Cognition (Neuro): normal cognition Gait exam (Neuro): Normal gait present Extrem General: Yes no clubbing, cyanosis or edema Assessment and Plan Assessment & Plan (1) Annual physical exam: Code(s): Z00.00 - Encounter for general adult medical examination without abnormal findings Plan: Check labs She will be due to start annual breast cancer screening next year (2) Palpable thyroid: Code(s): E04.9 - Nontoxic goiter, unspecified Plan: Will check TFTs for further evaluation Discussed that this may be just due to her thin body habitus but if her TFTs are abnormal, will consider sending her for a thyroid US for further evaluation (3) Complete : Code(s): O03.9 - Complete or unspecified spontaneous without complication Plan: She recently suffered a miscarriage about 2 to 3 weeks ago - follow up with Dr. Dudley as scheduled Plan To return in 1 year for her next annual physical examination unless anything unusual comes up on her labs Orders: Orders Complete Blood Count Auto Diff Today I10 - Essential (primary) hypertension, Z00.00 - Encounter for general adult medical examination without abnormal findings UA CC w/rflx Micro + Cult Today R30.0 - Dysuria, Z00.00 - Encounter for general adult medical examination without abnormal findings Vitamin D 25-OH Total Today E55.9 - Vitamin D deficiency, unspecified, Z00.00 - Encounter for general adult medical examination without abnormal findings Free T4 (Free Thyroxine) Today E04.9 - Nontoxic goiter, unspecified Comprehensive [place]. Panel Fast Today E78.00 - Pure hypercholesterolemia, unspecified, Z00.00 - Encounter for general adult medical examination without abnormal findings Lipid Panel Today E78.00 - Pure hypercholesterolemia, unspecified, Z00.00 - Encounter for general adult medical examination without abnormal findings Thyroid Stimulating Hormone Today E04.9 - Nontoxic goiter, unspecified Coding Level of Care Code New Pt Prev Care 18-39yr(24148 Diagnoses Annual physical exam Z00.00 Palpable thyroid E04.9 Complete O03.9 Additional Codes JANAK-7 Assessment Billing - JANAK-7 Assessment Tool: JANAK-7 Assessment [id number] ([id number])
== END 2023-04-19 11:04 | disposition home or self-care (01) ==
PROVIDERS: PCP Internal Medicine; Visit Provider Internal Medicine
DX: Z00.00 Encounter for general adult medical examination without abnormal findings (principal); E04.9 Nontoxic goiter, unspecified; O03.9 Complete or unspecified spontaneous abortion without complication
CPT/HCPCS: 99385

== ENCOUNTER 2023-04-19 11:10 | Outpatient (REF) | payer OTHER, SELFPAY ==
[2023-04-19 11:25] LABS: MANUAL DIFF FLAG NO
[2023-04-19 12:01] LABS: Basophils Percent Auto 0.5 % (0-2); Eosinophils Absolute Auto 0.2 X10*3/uL (0.0-0.4); Eosinophils Percent Auto 2.5 % (0-4); Hematocrit 38.3 % (37.0-47.0); Imm Gran Abs Auto 0.03 X10*3/uL (0.00-0.03); Imm Gran Pct Auto 0.4 % (0.0-0.4); Lymphocytes Absolute Auto 2.2 X10*3/uL (1.2-4.9); Lymphocytes Percent Auto 28.1 % (20-40); Mean Corpuscular HGB Conc 31.3 g/dl (31.0-35.0); Mean Corpuscular Hemoglobin 27.8 pg (27.0-33.0); Mean Corpuscular Volume 88.9 fL (80.0-98.0); Mean Platelet Volume 11.5 fL (9.4-12.3); Monocytes Absolute Auto 0.6 X10*3/uL (0.1-1.2); Monocytes Percent Auto 8.4 % (2-11); Neutrophils Absolute Auto 4.6 x10*3/uL (2.0-8.3); Neutrophils Percent Auto 60.1 % (45-73); Platelet Count 276 X10*3/uL (160-400); Red Blood Count 4.31 X10*6/uL (4.20-5.50); Red Cell Distribution Width 12.4 % (11.0-16.0); White Blood Count 7.6 X10*3/uL (4.8-10.8)
[2023-04-19 12:42] LABS: Alanine Aminotransferase 13 U/L (0-31); Alkaline Phosphatase 48 U/L (39-117); Anion Gap 9 (12-20); Aspartate Amino Transferase 16 U/L (5-31); Bilirubin Total 0.5 mg/dL (0.0-1.0); Blood Urea Nitrogen 7 mg/dL (9-16); Carbon Dioxide 27 mmol/L (22-29); Chloride 107 mmol/L (96-108); Cholesterol 163 mg/dL (<200); Estimated Glomerular Filt Rate > 60; Glucose Fasting 98 mg/dL (60-99); HDL Cholesterol 47 mg/dL (>40); LDL Cholesterol Calculated 94 mg/dL (<100); Potassium 4.4 mmol/L (3.3-5.1); Sodium 139 mmol/L (135-145); Total Protein 6.6 g/dL (6.5-8.0); Triglycerides 110 mg/dL (<150)
[2023-04-19 12:47] LABS: HCG Quantitative 7 mIU/mL
[2023-04-19 12:58] LABS: Free T4 (Free Thyroxine) 0.86 ng/dL (0.71-1.85); Thyroid Stimulating Hormone 0.64 uIU/mL (0.32-4.0); Vitamin D 25-OH Total 24.8 ng/mL (>30)
[2023-04-19 13:34] LABS: Appearance Urine Clear; Color Urine Yellow; Glucose Urine UA Negative (Negative); Leukocyte Esterase Urine Negative (Negative); Nitrite Urine Negative (Negative); PH 7.5 (5.0-9.0); Specific Gravity - Urine 1.015 (1.005-1.025); Urine Blood Negative (Negative); Urine Ketones Negative (Negative); Urine Protein Negative (Neg-Trace)
== END 2023-04-19 11:11 | disposition home or self-care (01) ==
LOC: HO.LAB 11:10
PROVIDERS: Absent Provider Obstetrics & Gynecology; PCP Internal Medicine; Visit Provider Internal Medicine
DX: Z00.00 Encounter for general adult medical examination without abnormal findings (principal); O03.9 Complete or unspecified spontaneous abortion without complication; E55.9 Vitamin D deficiency, unspecified; E04.9 Nontoxic goiter, unspecified; R30.0 Dysuria; E78.00 Pure hypercholesterolemia, unspecified; I10 Essential (primary) hypertension
CPT/HCPCS: 36415; 80053; 80061; 81003; 82306; 84439; 84443; 84702; 85025

== ENCOUNTER 2023-07-11 13:04 | Outpatient (AMB) | payer OTHER, SELFPAY ==
--- NOTE | 2023-07-11 13:05 | MHC.OFFVIS ---
Intake Vital Signs 07/11/23 13:15 Height 5 ft 5 in Weight 157 lb BMI 26.1 BP 118/76 Intake Visit Reasons: vaginal infection Threshing Operator Required: No Information Interpreted: clinical only Rehabilitation Services Counselor: Rehabilitation Services Counselor Present Allergies naproxen [From Naprosyn] Allergy (Unknown, Verified 07/11/23 13:16) NAUSEA & VOMITING tramadol [TRAMADOL] Allergy (Unknown, Verified 07/11/23 13:16) ITCHING Medication List - Last Reconciled 07/11/23 by Meilna Leblanc CNM No Known Home Meds Is last menstrual period known: Yes Last menstrual period: 06/26/23 HPI vaginal infection HPI Details Patient is here at our [facility] site, for problem visit today she is got a vaginal odor that smells fishy and that really bothers her she called the OBGYN office and had a conversation about self-care and admits that she does douche and use soap and everything. She did have this a couple of times before and the last time she was treated with metronidazole twice a day for 7 days and things were perfect after that she later also shared that she had had trichomoniasis diagnosed at that exam as well that was around the time that a nonviable was being assessed and diagnosed patient had a miscarriage and says that in a visit with Dr. Dudley he was able to remove all the (POCs), She said previous to this she is to get all of her care at [facility] but she does not think she has been seen in years. She does not remember when she would have had her last Pap smear other than she thought that is what was done in the emergency room and up at 501 when she did have speculum exams. She is actively trying to have a baby she has a history of 2 vaginal births years ago at [facility]. 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 Positive test Missed menses Surgical History History of lung surgery Family History Other Family history non-contributory Social History Household Members: Children Housing: Apartment Alcohol intake: never Patient Tobacco Use Status: Current everyday Tobacco user Tobacco use type: Cigarette Cigarettes Per Day: 5 e-Cigarette/Vaping Use: Never Used service: No Current occupational status: unemployed Sexual orientation: Straight/Heterosexual Gender identity: Female Cognitive needs: No Hearing needs: No Vision needs: No Female Reproductive History Menstrual Age of Menarche: 10 Duration of menses: 3-5 days Date of last menstrual period: 06/26/23 control method: none Total pregnancies: 3 Full term: 2 Date of last pap smear: 05/06/23 (per mpatient,2022,negative) History of abnormal pap smear: No Physical Exam Vital Signs: Last Vital Signs BP 118/76 07/11/23 13:15 BMI result Body Mass Index 26.1 Other: External exam within normal limits vagina pink moist healthy appearing with a scant white discharge Multiparous cervix has slight appearance that could be consistent with history of a LEEP. Patient denies remembering or having any such procedure or abnormal Pap in her past history. External Female Exam: normal external appearance and normal appearance of the urethra Speculum Exam - Vagina: normal appearance of the vagina and normal vaginal discharge Speculum Exam - Cervix: normal appearance of the cervix and Cervical os closed Assessment & Plan Assessment & Plan (1) Vaginal odor: Code(s): N89.8 - Other specified noninflammatory disorders of vagina (2) Encounter for screening examination for sexually transmitted disease: Code(s): Z11.3 - Encounter for screening for infections with a predominantly sexual mode of transmission (3) Patient desires : Code(s): Z31.9 - Encounter for procreative management, unspecified (4) Hx of trichomonal vaginitis: Comment: March of 2023. patient was treated. partner was told he tested negative and did not get treated. Code(s): Z86.19 - Personal history of other infectious and parasitic diseases Plan Extensive discussion about the possibilities before the patient consented to an exam she was reluctant to have the speculum used. Teaching done about the common experience of changes to vaginal tanner of with sexual intercourse and therefore changes with pH and odor for us changes that occur commonly called bacterial vaginosis and treated with metronidazole. In addition discussion occurred when she disclosed about the past history of trichomoniasis about transmission of the organism from 1 person to another and that this 1 is a sexually transmitted infection and if 1 person in a relationship gets treated but the other person does not then it is extremely common and likely that they will just give it back and forth to each other until both were treated at the same time and avoid unprotected intercourse until all the organisms are so for little extra time is myers. Patient expressed surprised that her partner could have been tested and found to be negative but I did discuss how it is possible to have a false negative in this case but less likely to have a false-positive as this is a DNA test. Discussed that this is why when 1 person test positive for any of these STDs the other person in her relationship if there is just 1 should get treated irregardless of their own testing results. Discussed that the medication for both Gardnerella/BV and trichomoniasis currently are the same. And discuss precautions around taking the medication. I also let the patient know that we do not currently have a birthing center so if somebody comes to us with we are sending them to [facility] to deliver there babies, and that there are possible indications why we would not be able to offer care in the instance of some complications. Patient did not remember any abnormal Pap smears in the past or even in the recent ones for that matter and believes they were all done at [facility]. I did tell the patient that her cervix did have the appearance of a LEEP but she did not remember having any such procedure. She does need a Pap smear so she needs to schedule an annual exam. She can make the appointment with anyone she wishes. Patient is on the portal and a depth that using it and I told her to expect testing results by tomorrow. Pres[facility] [address] [facility] for her. Orders: Orders CT NG by PCR Today Z01.419 - Encounter for gynecological examination (general) (routine) without abnormal findings Bacterial Vaginosis Panel Today Z20.2 - Contact with and (suspected) exposure to infections with a predominantly sexual mode of transmission Medications: New metronidazole 500 mg PO Q12H 14 tabs 0RF Coding Level of Care Code Est Pt Level 3 (45693) Diagnoses Vaginal odor N89.8 Encounter for screening examination for sexually transmitted disease Z11.3 Patient desires Z31.9 Hx of trichomonal vaginitis Z86.19
[2023-07-11 13:15] VITALS: BP 118/76; BMI 26.1
== END 2023-07-11 14:02 | disposition home or self-care (01) ==
LOC: HO.HWSM 13:04
PROVIDERS: PCP Internal Medicine; Visit Provider Advanced Practice Midwife
DX: N89.8 Other specified noninflammatory disorders of vagina (principal); Z11.3 Encounter for screening for infections with a predominantly sexual mode of transmission; Z31.9 Encounter for procreative management, unspecified; Z86.19 Personal history of other infectious and parasitic diseases
CPT/HCPCS: 99213

== ENCOUNTER 2023-07-11 13:04 | Outpatient (REF) | payer OTHER, SELFPAY ==
[2023-07-12 03:45] LABS: CT PCR NOT DETECTED (Not Detect.); NG PCR NOT DETECTED (Not Detect.)
[2023-07-12 15:18] LABS: BV Int Neg Control Negative (Negative); BV Int Pos Control Positive (Positive)
== END 2023-07-11 13:05 | disposition home or self-care (01) ==
LOC: HO.LAB 13:04
PROVIDERS: PCP Internal Medicine; Visit Provider Advanced Practice Midwife
DX: Z01.419 Encounter for gynecological examination (general) (routine) without abnormal findings (principal); Z20.2 Contact with and (suspected) exposure to infections with a predominantly sexual mode of transmission; N89.8 Other specified noninflammatory disorders of vagina
CPT/HCPCS: 0353U; 87480; 87510; 87660; 99212

== ENCOUNTER 2024-01-13 11:08 | Outpatient (AMB) | payer OTHER, SELFPAY ==
--- NOTE | 2024-01-13 11:09 | A.OFFVIS_ITS ---
Vital Signs 01/13/24 11:11 Height 5 ft 5 in Weight 154 lb 5.177 oz BMI 25.7 Intake Visit Reasons: vaginal odor Solutions Sales Executive Required: No Information Interpreted: non-clinical & clinical Filer And Sander: Filer And Sander Present (Mariann CABRALESJuanito) Accompanied by: Self / Same As Patient Allergies naproxen [From Naprosyn] Allergy (Unknown, Verified 01/13/24 11:11) NAUSEA & VOMITING tramadol [TRAMADOL] Allergy (Unknown, Verified 01/13/24 11:11) ITCHING Is last menstrual period known: Yes Last menstrual period: 12/30/23 HPI Comments Details: The patient is presenting complaining of vaginal discharge associated with foul odor, no other associated symptoms, vaginal itching or any other complaint [facility] Medical History 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 Positive test Missed menses Surgical History History of lung surgery Family History Other Family history non-contributory Social History Household Members: Children Housing: Apartment Alcohol intake: never Patient Tobacco Use Status: Current everyday Tobacco user Tobacco use type: Cigarette Cigarettes Per Day: 5 e-Cigarette/Vaping Use: Never Used service: No Current occupational status: unemployed Sexual orientation: Straight/Heterosexual Gender identity: Female Cognitive needs: No Hearing needs: No Vision needs: No Female Reproductive History Menstrual Age of Menarche: 10 Date of last menstrual period: 12/30/23 Review of Systems Const All systems reviewed & are unremarkable except as noted in HPI and below Physical Exam Vital Signs: BMI result Body Mass Index 25.7 General: Yes no CVA tenderness External Female Exam: normal external appearance and normal appearance of the urethra Speculum Exam - Vagina: normal appearance of the vagina, normal palpation, no lesions and no masses Speculum Exam - Cervix: normal appearance of the cervix, normal palpation, no lesions, no masses and nontender Bimanual exam- vagina & uterus: normal bimanual exam, normal palpation, uterine size normal, normal palpation, uterine shape normal, No Cervical tenderness present and non-tender Bimanual Exam- Adnexa, other: normal adnexae Back/Spine/Pelvis Back: no CVA tenderness Assessment & Plan Assessment & Plan (1) Bacterial vaginosis: Code(s): N76.0 - Acute vaginitis; B96.89 - Other specified bacterial agents as the cause of diseases classified elsewhere Category: Medical Plan: GC and chlamydia cultures with BV panel taken. Per CDC recommendation, will screen for STI, HepBs Ag, HIV, RPR, Hep C Ab ordered. Will treat with Flagyl 500 mg p.o. b.i.d. x 7 days, Instructions given to the patient to refrain from sexual activity or to use condoms consistently and correctly during the BV treatment regimen, not to douch, it might increase the risk for relapse, and to call if symptoms persist or recur. Orders: Orders Syphilis Screen Today B96.89 - Other specified bacterial agents as the cause of diseases classified elsewhere, N76.0 - Acute vaginitis Hepatitis C Antibody Today B96.89 - Other specified bacterial agents as the cause of diseases classified elsewhere, N76.0 - Acute vaginitis Hepatitis B Surface Antigen Today B96.89 - Other specified bacterial agents as the cause of diseases classified elsewhere, N76.0 - Acute vaginitis HIV Ab/Ag Today B96.89 - Other specified bacterial agents as the cause of diseases classified elsewhere, N76.0 - Acute vaginitis Medications: New metronidazole 500 mg PO BID 7 days 14 tabs 0RF Coding Level of Care Code Est Pt Level 3 (51257) Diagnoses Bacterial vaginosis N76.0; B96.89
[2024-01-13 11:11] VITALS: BMI 25.7
== END 2024-01-13 11:20 | disposition home or self-care (01) ==
PROVIDERS: PCP Internal Medicine; Visit Provider Obstetrics & Gynecology
DX: N76.0 Acute vaginitis (principal); B96.89 Other specified bacterial agents as the cause of diseases classified elsewhere
CPT/HCPCS: 99213

== ENCOUNTER 2024-01-13 11:08 | Outpatient (REF) | payer OTHER, SELFPAY ==
[2024-01-13 17:09] LABS: Bacterial Vaginosis PCR POSITIVE (Negative); Candida Group PCR NOT DETECTED (Not Detect); Candida glab krusei PCR NOT DETECTED (Not Detect); Trichomonas vaginalis PCR NOT DETECTED (Not Detect)
[2024-01-13 18:00] LABS: CT PCR NOT DETECTED (Not Detect.); NG PCR NOT DETECTED (Not Detect.)
== END 2024-01-13 11:09 | disposition home or self-care (01) ==
LOC: HO.LNP 11:08
PROVIDERS: PCP Internal Medicine; Visit Provider Obstetrics & Gynecology
DX: N76.0 Acute vaginitis (principal); B96.89 Other specified bacterial agents as the cause of diseases classified elsewhere
CPT/HCPCS: 0352U; 87491; 87591; 99212

== ENCOUNTER 2024-03-10 10:31 | Outpatient (REF) | payer OTHER, SELFPAY ==
[2024-03-11 05:08] LABS: CT PCR NOT DETECTED (Not Detect.); NG PCR NOT DETECTED (Not Detect.)
[2024-03-11 11:38] LABS: Bacterial Vaginosis PCR POSITIVE (Negative); Candida Group PCR NOT DETECTED (Not Detect); Candida glab krusei PCR NOT DETECTED (Not Detect); Trichomonas vaginalis PCR NOT DETECTED (Not Detect)
== END 2024-03-10 10:32 | disposition home or self-care (01) ==
LOC: HO.LNP 10:31
PROVIDERS: PCP Internal Medicine; Visit Provider Obstetrics & Gynecology
DX: N76.0 Acute vaginitis (principal); B96.89 Other specified bacterial agents as the cause of diseases classified elsewhere
CPT/HCPCS: 0352U; 87491; 87591; 99212

== ENCOUNTER 2024-03-10 10:31 | Outpatient (AMB) | payer OTHER, SELFPAY ==
[2024-03-10 10:48] VITALS: BMI 25.7
--- NOTE | 2024-03-10 10:48 | A.OFFVIS_ITS ---
Vital Signs 03/10/24 10:48 Height 5 ft 5 in Weight 154 lb 5.177 oz BMI 25.7 Intake Visit Reasons: vaginal discharge Registry Nurse Required: No Information Interpreted: non-clinical & clinical Parenting Skills Instructor: Parenting Skills Instructor Present (Mariann REAL) Accompanied by: Self / Same As Patient Allergies naproxen [From Naprosyn] Allergy (Unknown, Verified 03/10/24 11:01) NAUSEA & VOMITING tramadol [TRAMADOL] Allergy (Unknown, Verified 03/10/24 11:01) ITCHING HPI Comments Details: The patient is presenting complaining of vaginal discharge associated with foul odor, no other associated symptoms, vaginal itching or any other complaint The patient had 3 previous BV episodes since 04/15 that were treated with metronidazole the patient symptoms resolve and then recur [facility] Medical History 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 Positive test Missed menses Surgical History History of lung surgery Family History Other Family history non-contributory Social History Household Members: Children Housing: Apartment Alcohol intake: never Patient Tobacco Use Status: Current everyday Tobacco user Tobacco use type: Cigarette Cigarettes Per Day: 5 e-Cigarette/Vaping Use: Never Used service: No Current occupational status: unemployed Sexual orientation: Straight/Heterosexual Gender identity: Female Cognitive needs: No Hearing needs: No Vision needs: No Female Reproductive History Menstrual Age of Menarche: 10 Review of Systems Const All systems reviewed & are unremarkable except as noted in HPI and below Physical Exam Vital Signs: BMI result Body Mass Index 25.7 General: Yes no CVA tenderness External Female Exam: normal external appearance and normal appearance of the urethra Speculum Exam - Vagina: normal appearance of the vagina, normal palpation, no lesions and no masses Speculum Exam - Cervix: normal appearance of the cervix, normal palpation, no lesions, no masses and nontender Bimanual exam- vagina & uterus: normal bimanual exam, normal palpation, uterine size normal, normal palpation, uterine shape normal, No Cervical tenderness present and non-tender Bimanual Exam- Adnexa, other: normal adnexae Back/Spine/Pelvis Back: no CVA tenderness Assessment & Plan Assessment & Plan (1) Bacterial vaginosis: Code(s): N76.0 - Acute vaginitis; B96.89 - Other specified bacterial agents as the cause of diseases classified elsewhere Category: Medical Plan: GC and chlamydia cultures with BV panel taken. Will screen with fasting blood sugar and for STI, HepBs Ag, HIV, RPR, Hep C Ab ordered. Will treat with Flagyl 500 mg p.o. b.i.d. x 7 days, Instructions given to the patient to refrain from sexual activity or to use condoms consistently and correctly during the BV treatment regimen, not to douch, it might increase the risk for relapse, and to call if symptoms persist or recur. Instructions given the patient to schedule 1 week follow-up appointment if Trichomonas is negative and recurrent BV is documented will treat with the CDC recommended regimen for recurrent BV. All questions answered, the patient verbalized understanding Orders: Orders CT NG by PCR Today B96.89 - Other specified bacterial agents as the cause of diseases classified elsewhere, N76.0 - Acute vaginitis Bacterial Vaginosis Panel Today B96.89 - Other specified bacterial agents as the cause of diseases classified elsewhere, N76.0 - Acute vaginitis Coding Level of Care Code Est Pt Level 3 (26599) Diagnoses Bacterial vaginosis N76.0; B96.89
== END 2024-03-10 11:22 | disposition home or self-care (01) ==
LOC: HO.HWS 10:31
PROVIDERS: PCP Internal Medicine; Visit Provider Obstetrics & Gynecology
DX: N76.0 Acute vaginitis (principal); B96.89 Other specified bacterial agents as the cause of diseases classified elsewhere
CPT/HCPCS: 99213

== ENCOUNTER 2024-03-17 10:05 | Outpatient (AMB) | payer OTHER, SELFPAY ==
--- NOTE | 2024-03-17 10:06 | MHC.OFFVIS ---
Intake Visit Reasons: TV Results Allergies naproxen [From Naprosyn] Allergy (Unknown, Verified 03/10/24 11:01) NAUSEA & VOMITING tramadol [TRAMADOL] Allergy (Unknown, Verified 03/10/24 11:01) ITCHING HPI Comments Details: The patient is scheduled tele health visit as a follow-up. 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 Positive test Missed menses Surgical History History of lung surgery Family History Other Family history non-contributory Social History Household Members: Children Housing: Apartment Alcohol intake: never Patient Tobacco Use Status: Current everyday Tobacco user Tobacco use type: Cigarette Cigarettes Per Day: 5 e-Cigarette/Vaping Use: Never Used service: No Current occupational status: unemployed Sexual orientation: Straight/Heterosexual Gender identity: Female Cognitive needs: No Hearing needs: No Vision needs: No Female Reproductive History Menstrual Age of Menarche: 10 Review of Systems Const All systems reviewed & are unremarkable except as noted in HPI and below Reports as per HPI and Reports no additional complaints GI Reports no additional complaints Reports no additional complaints Telehealth Telehealth Telehealth Platform: Telephone Location of provider rendering services: practice address Location of patient: address on file Patient Identification confirmed using: Name, : Yes Telehealth method: video Patient verbally consented to treatment: Yes Patient verbally consented to billing insurance company: Yes Patient informed of any privacy concerns related to visit: Yes Assessment & Plan Assessment & Plan (1) Bacterial vaginosis: Comment: recurrent Code(s): N76.0 - Acute vaginitis; B96.89 - Other specified bacterial agents as the cause of diseases classified elsewhere Category: Medical Plan: Discussed with the patient that detection of certain BV-associated organisms has been associated with antimicrobial resistance and can be the cause of subsequent treatment failure. Limited data are available regarding optimal management strategies for women with persistent or recurrent BV. recommended treatment will use CDC guidelines to treat recurrent BV with metronidazole 500 mg twice daily for 7 days followed by intravaginal boric acid 600 mg daily for 21 days and then suppressive regimen is monthly oral metronidazole 2g administered with fluconazole 150 mg for 4 months; this regimen reduced the incidence of BV and promoted colonization with normal vaginal tanner. I spent a total of 20 minutes reviewing the chart, talking to the patient via video and documenting in the medical record. Medications: New metronidazole Start 4 tablets x1 per month for 4 months, to be started in 4 weeks 2,000 mg (4 x 500 mg) PO ONCE 1 day 4 tabs 3RF metronidazole 500 mg PO BID 7 days 14 tabs 0RF fluconazole Taken 1 tablet a month for 4 months to be started in 4 weeks 150 mg PO ONCE 1 day 1 tab 3RF Coding Level of Care Code Tele Est Pt Level 1 (55358) Diagnoses Bacterial vaginosis N76.0; B96.89
== END 2024-03-17 12:10 | disposition home or self-care (01) ==
LOC: HO.HWS 10:05
PROVIDERS: PCP Internal Medicine; Visit Provider Obstetrics & Gynecology
DX: N76.0 Acute vaginitis (principal); B96.89 Other specified bacterial agents as the cause of diseases classified elsewhere
CPT/HCPCS: 99211

== ENCOUNTER → 2024-03-17 10:05 | Outpatient (BNVA) | payer OTHER, SELFPAY | PROVIDERS: PCP Internal Medicine; Visit Provider Obstetrics & Gynecology ==

== ENCOUNTER 2024-07-17 08:41 | Emergency (ER) | payer OTHER, SELFPAY ==
--- NOTE | ~2024-07-17 | XR_ITS ---
EXAMINATION: XR LUMBAR SPINE 1 VIEW HISTORY: Fall COMPARISON: There are no prior studies for comparison. FINDINGS: AP, lateral, and coned down views of the lumbar spine are submitted. Osseous mineralization is normal. There is slight leftward curvature which may be positional in nature. Five nonrib-bearing lumbar vertebral bodies are identified, maintaining normal height without evidence of fracture or spondylolisthesis. The intervertebral disc spaces are preserved. The posterior elements are intact. The visualized paraspinal soft tissues are unremarkable. XR/XR lumbar spine 1V IMPRESSION: Slight leftward curvature which may be positional in nature. Otherwise unremarkable examination of the lumbar spine. Electronically signed by: Selvin Myles MD 07/17/2024 10:39 AM EST
--- NOTE | ~2024-07-17 | XR_ITS ---
EXAMINATION: XR FEMUR 2 VIEWS LEFT HISTORY: Pain COMPARISON: There are no prior studies available for comparison. FINDINGS: AP and lateral views of the left femur are submitted. Osseous mineralization is normal. There is no fracture or dislocation. The hip and knee joint spaces are preserved. The soft tissues are unremarkable. XR/XR femur LT 2V IMPRESSION: Unremarkable examination of the left femur. Electronically signed by: Selvin Myles MD 07/17/2024 10:43 AM [facility]
--- NOTE | ~2024-07-17 | XR_ITS ---
EXAMINATION: XR HAND AND WRIST COMPLETE LEFT HISTORY: pain s/p fall COMPARISON: There are no prior studies available for comparison. FINDINGS: Four views of the left hand and wrist including a scaphoid view are submitted. Osseous mineralization is normal. There is no fracture or dislocation. The joint spaces are preserved. The soft tissues are unremarkable. XR/XR hand wrist LT IMPRESSION: Unremarkable examination of the left hand and wrist. Electronically signed by: Selvin Myles MD 07/17/2024 11:25 AM [facility]
--- NOTE | ~2024-07-17 | XR_ITS ---
EXAMINATION: XR PELVIS 1-2 VIEWS HISTORY: Fall COMPARISON: There are no prior studies for comparison. FINDINGS: A single AP view of the pelvis is submitted. Osseous mineralization is normal. There is no fracture or dislocation. The joint spaces are maintained. The soft tissues are unremarkable. XR/XR pelvis 1-2V IMPRESSION: Unremarkable examination of the pelvis. Electronically signed by: Selvin Myles MD 07/17/2024 10:42 AM [facility]
[2024-07-17 09:25] VITALS: BP 109/56; PULSE 73; RESP 18; TEMP 36.7; O2SAT 100; BMI 29.2
[2024-07-17 10:28] LABS: Appearance Urine Cloudy; Color Urine Yellow; Glucose Urine UA Negative (Negative); Leukocyte Esterase Urine Small (1+) (Negative); Nitrite Urine Negative (Negative); PH 5.5 (5.0-9.0); Specific Gravity - Urine 1.025 (1.005-1.025); UMIC TRIGGER UACC YES; UPreg QC Valid YES; Urine Blood Small (1+) (Negative); Urine Ketones Negative (Negative); Urine Pregnancy NEGATIVE (NEGATIVE); Urine Protein Negative (Neg-Trace)
[2024-07-17 10:47] LABS: Bacteria Urine 4+ (None Seen); Hyaline Casts Urine 0-2 /LPF (0-2); Squamous Epithelial Cell Urine >20 /HPF (0-2); UACC Culture Trigger YES; WBC Urine 0-5 /HPF (0-5)
--- NOTE | 2024-07-17 10:51 | ED_ITS ---
HPI - Fall General Chief Complaint: Fall Stated Complaint: slip and fall x2 / back and wrist pain Time Seen by Provider: 07/17/24 10:35 Source: patient Mode of arrival: ambulatory Limitations: no limitations History of Present Illness ED Provider: Antonio Kelley PA-C HPI Narrative: 38 yo female presenting to the ER for evaluation of LLE Pain, low back pain and left hand pain after she slipped and fell on icy stairs on 07/14. She states she fell and her left leg went behind her, pulling the muscle in the front of her thigh. She has had left upper leg pain, left hip pain, left buttock and low back pain since. She fell again the next day but it was less severe of a fall. she did not hit her head or lose consciousness. She is not on anticoagulation. She is ambulatory. She is taking Tylenol for pain with improvement. MD complaint: fall Onset (ago): day(s) Fall from: standing Fall witnessed: no Place fall occurred: street Loss of consciousness: none Prolonged down time: no Symptoms prior to fall: none Context: tripped/slipped Location of injury: back and pelvis Location of injury - extremities: left: thigh Severity: moderate Severity scale (1-10): 5 Quality: aching Associated symptoms (after fall): denies Related Data Previous Rx's ?Medication ?Instructions ?Recorded fluconazole 150 mg tablet 150 mg PO ONCE 1 day #1 tab 03/17/24 metronidazole 500 mg tablet 2,000 mg (4 x 500 mg) PO ONCE 1 03/17/24 day #4 tabs metronidazole 500 mg tablet 500 mg PO BID 7 days #14 tabs 03/17/24 varenicline 0.5 mg (11)-1 mg (42) See Rx Instructions PO PER PKG DIR 04/20/24 tablets in a dose pack #53 ea cyclobenzaprine 10 mg tablet 10 mg PO TID PRN muscle spasm #10 07/17/24 tabs lidocaine 5 % topical patch 1 patch topical DAILY #15 ea 07/17/24 naproxen 500 mg tablet 500 mg PO BID PRN pain #20 tabs 07/17/24 Allergies Allergy/AdvReac Type Severity Reaction Status Date / Time naproxen [From Naprosyn] Allergy Unknown NAUSEA & Verified 07/17/24 09:27 VOMITING tramadol [TRAMADOL] Allergy Unknown ITCHING Verified 07/17/24 09:27 Review of Systems Review of Systems: Yes all other systems are reviewed and are negative [facility] Past Medical History Medical History 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 Positive test Missed menses Surgical History History of lung surgery Family History Family History Other Family history non-contributory Social History Social History Household Members: Children Housing: Apartment Alcohol intake: never Patient Tobacco Use Status: Current everyday Tobacco user Tobacco use type: Cigarette Cigarettes Per Day: 5 e-Cigarette/Vaping Use: Never Used Advance Directives: No Advance Directives Information Provided: No Do you have a plan to hurt others: No Plan service: No Current occupational status: unemployed Sexual orientation: Straight/Heterosexual Gender identity: Female Cognitive needs: No Hearing needs: No Vision needs: No Physical Exam Vital Signs: Vital Signs: Last Vital Signs Temp 98.1 F 07/17/24 11:49 Pulse 73 07/17/24 11:49 Resp 18 07/17/24 11:49 BP 109/56 L 07/17/24 11:49 Pulse Ox 100 07/17/24 11:49 O2 Del Method Room Air 07/17/24 11:49 BMI result Body Mass Index 29.2 Appearance: Alert. Oriented X3. No acute distress. HEENT: Normocephalic atraumatic, normal inspection of the face Neck: Normal inspection. CVS: Normal heart rate and rhythm. Pulses normal. Respiratory: No respiratory distress. Breath sounds normal. Skin: Skin warm and dry. Normal skin color. Normal skin turgor. No rashes. Back: Normal inspection, no ecchymosis. There is soft tissue tenderness of the left lower and middle lumbar area. No midline tenderness Extremities: No lower extremity edema. No joint swelling. No ecchymosis noted. She has soft tissue tenderness of the entire anterior left thigh. No swelling of the left knee with passive normal range of motion. No left hip tenderness. Full range of motion of the left hip. Left hand with mild swelling and ecchymosis over the area of the 4th meta carpal. Equal hand grasp bilaterally. Neurovascularly intact distally. Left radial pulses 2+. Neuro/psych: Oriented X 3. No motor deficit. No sensory deficit. CN II-XII intact. Normal speech and cognition. Steady gait Medical Decision Making Medical Decision Making [facility] Narrative: 38-year-old female with no significant medical history presents to the ER for evaluation of left lower extremity pain, left lower back pain after to slip and falls on the ice. She is ambulating with a steady gait. She has soft tissue te nderness but no point tenderness, gross deformity. she most likely has muscle strain and spasm. Multiple x-rays were done of her left femur, left hip, pelvis, lumbar spine as well as her left hand which shows no acute fractures. Results and the likely diagnosis of muscle strain and spasm were discussed with the patient. Will prescribe anti-inflammatories and muscle relaxers, we discussed supportive care with rest, ice, heat, stretching and massage. She agrees with plan. Stable for discharge home. Differential Diagnosis Differential Diagnoses: The differential diagnosis associated with the presentation includes Inflammatory disorders, malignancy, trauma, osteoporosis, nerve root compression, radiculopathy, plexopathy, degenerative disc disease, disc herniation, spinal stenosis, sacroiliac joint dysfunction, facet joint injury, and less likely infection?like abscess or diskitis Lab Data [facility] Lab Attestation statement: I reviewed the patient's lab results. Labs: Lab Results 07/17/24 Range/Units 10:00 Urine Color Yellow Urine Appearance Cloudy Urine pH 5.5 (5.0-9.0) Ur Specific [place] 1.025 (1.005-1.025) Urine Protein Negative (Neg-Trace) mg/dL Urine Glucose (UA) Negative (Negative) mg/dL Urine Ketones Negative (Negative) mg/dL Urine Blood Small (1+) H (Negative) Urine Nitrite Negative (Negative) Ur Leukocyte Esterase Small (1+) H (Negative) Urine RBC 6-10 H (0-2) /HPF Urine WBC 0-5 (0-5) /HPF Ur Squamous Epith Cells >20 (0-2) /HPF Urine Bacteria 4+ (None Seen) Hyaline Casts 0-2 (0-2) /LPF Urine Test NEGATIVE (NEGATIVE) Independent Interpretation I performed an independent interpretation of an: Plain X-Ray Interpretation: no acute fracture of the left hand, pelvis and lumbar spine Radiology Impression Discussion of test interpretation with radiology: I have reviewed the radiologist's reading. External Record Review External record reviewed: Prior outpatient labs and Prior outpatient radiology Prescription Management I considered prescription management with: Pain Medication Critical Care Time Critical Care Time Critical Care Time: No Discharge Plan Discharge Clinical Impression: Low back strain, Contusion of hand, Muscle strain of left lower extremity Patient Disposition: Home, Self-Care Instructions: Muscle Strain (ED), Low Back Strain (ED) Additional Instructions: Your x-rays did not show any evidence of broken bones or fractures. Your pain is most likely due to muscle strain and spasm. Rest, no strenuous activity. Gently stretch the left leg in the next few days. Use ice several times per day for 20 minutes at a time for the next 48 hours and then change to heat. Take medications as prescribed to help with pain and discomfort. Follow up with your Primary Care Doctor as needed If you develop new or worsening symptoms call 911 or come back to the ER for further evaluation. Prescriptions: New cyclobenzaprine 10 mg tablet 10 mg PO TID PRN (Reason: muscle spasm) Qty: 10 0RF lidocaine 5 % adhesive patch,medicated 1 patch topical DAILY Qty: 15 0RF Rx Instructions: leave on most painful area for up to 12 hrs naproxen 500 mg tablet 500 mg PO BID PRN (Reason: pain) Qty: 20 0RF No Action varenicline 0.5 mg (11)- 1 mg (42) tablets,dose pack See Rx Instructions PO PER PKG DIR Qty: 53 0RF Rx Instructions: PO PER PKG DIR metronidazole 500 mg tablet 500 mg PO BID 7 Days Qty: 14 0RF metronidazole 500 mg tablet 2,000 mg PO ONCE 1 Days Qty: 4 3RF Rx Instructions: Start 4 tablets x1 per month for 4 months, to be started in 4 weeks fluconazole 150 mg tablet 150 mg PO ONCE 1 Days Qty: 1 3RF Rx Instructions: Taken 1 tablet a month for 4 months to be started in 4 weeks Stand Alone Forms: Work/School Release Interventions: ED Discharge Assessment Last Done: 07/17/24 11:49 Discharge Date/Time: 07/17/24 11:50 Print Language: Scottish
[2024-07-17 11:49] VITALS: BP 109/56; PULSE 73; RESP 18; TEMP 36.7; O2SAT 100
== END 2024-07-17 11:50 | disposition home or self-care (01) ==
PROVIDERS: Emergency Provider Emergency Medicine; PCP Internal Medicine
DX: S39.012A Strain of muscle, fascia and tendon of lower back, initial encounter (principal); S60.222A Contusion of left hand, initial encounter; S86.912A Strain of unspecified muscle(s) and tendon(s) at lower leg level, left leg, initial encounter; M79.605 Pain in left leg; M79.642 Pain in left hand; R10.2 Pelvic and perineal pain; W00.0XXA Fall on same level due to ice and snow, initial encounter; Y93.89 Activity, other specified; Y92.89 Other specified places as the place of occurrence of the external cause; Y99.8 Other external cause status
CPT/HCPCS: 72020; 72170; 73110; 73130; 73552; 81001; 81025; 87086; 99282; 99283

== ENCOUNTER → 2024-07-17 10:00 | Outpatient (BNV) | payer OTHER, SELFPAY | PROVIDERS: Emergency Provider Emergency Medicine; PCP Internal Medicine; Visit Provider Radiology Diagnostic Radiology | DX: M79.642 Pain in left hand (principal); M79.605 Pain in left leg; S39.93XA Unspecified injury of pelvis, initial encounter; S39.92XA Unspecified injury of lower back, initial encounter | CPT/HCPCS: 72020; 72170; 73130; 73552 ==

== ENCOUNTER 2024-12-23 09:33 | Emergency (ER) | payer SELFPAY ==
[2024-12-23 09:39] VITALS: BP 112/49; PULSE 88; RESP 18; TEMP 36.4; O2SAT 98; BMI 29.6
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
[2024-12-23 10:21] LABS: MANUAL DIFF FLAG NO
[2024-12-23 10:23] LABS: Hematocrit 34.5 % (37.0-47.0); Hemoglobin 11.2 g/dl (12.0-16.0); Imm Gran Abs Auto 0.02 X10*3/uL (0.00-0.03); Imm Gran Pct Auto 0.3 % (0.0-0.4); Lymphocytes Absolute Auto 1.6 X10*3/uL (1.2-4.9); Mean Corpuscular HGB Conc 32.5 g/dl (31.0-35.0); Mean Corpuscular Hemoglobin 27.8 pg (27.0-33.0); Mean Corpuscular Volume 85.6 fL (80.0-98.0); NRBC Abs Auto 0.000 X10*3/uL (0.0-0.012); NRBC Pct Auto 0.0 /100WBC (0.0-0.2); Platelet Count 294 X10*3/uL (160-400); Red Blood Count 4.03 X10*6/uL (4.20-5.50); White Blood Count 6.1 X10*3/uL (4.8-10.8)
[2024-12-23 10:33] LABS: INTERNATIONAL NORM RATIO 1.0 (0.9-1.1); Prothrombin Time 11.4 SEC (10.9-12.4)
[2024-12-23 10:37] LABS: Alanine Aminotransferase 15 U/L (0-31); Albumin Level 3.7 g/dL (3.5-5.0); Alkaline Phosphatase 65 U/L (39-117); Anion Gap 11 (12-20); Aspartate Amino Transferase 20 U/L (5-31); Blood Urea Nitrogen 6 mg/dL (9-16); Calcium 8.3 mg/dL (8.4-10.2); Carbon Dioxide 24 mmol/L (22-29); Chloride 110 mmol/L (96-108); Creatinine Clr Calc Pharmacy 116.0; Estimated Glomerular Filt Rate > 60; Potassium 3.8 mmol/L (3.3-5.1); Sodium 141 mmol/L (135-145); Total Protein 6.0 g/dL (6.5-8.0)
--- NOTE | 2024-12-23 11:24 | PC.NURSE ---
pt refused CT scan and IV- PA notified via [employer]
--- NOTE | 2024-12-23 11:32 | PC.NURSE ---
PA Youngblood to bedside explaining risks of declining further imaging, Pt medicated with IBU 400mg for 6/10pain. Pt awaiting AMA discharge paperwork
[2024-12-23 11:39] VITALS: BP 112/49; PULSE 88; RESP 18; TEMP 36.4; O2SAT 98
== END 2024-12-23 11:40 | disposition home or self-care (01) ==
PROVIDERS: Physician Assistant Medical; Emergency Provider Emergency Medicine Emergency Medical Services; PCP Internal Medicine
DX: S16.1XXA Strain of muscle, fascia and tendon at neck level, initial encounter (principal); V43.62XA Car passenger injured in collision with other type car in traffic accident, initial encounter; H92.01 Otalgia, right ear; H91.91 Unspecified hearing loss, right ear; R51.9 Headache, unspecified; Y93.89 Activity, other specified; Y92.414 Local residential or business street as the place of occurrence of the external cause; Y99.9 Unspecified external cause status; Z79.899 Other long term (current) drug therapy; Z53.29 Procedure and treatment not carried out because of patient's decision for other reasons
CPT/HCPCS: 36415; 80053; 85025; 85610; 99283; 99284

== ENCOUNTER 2025-01-05 13:31 | Outpatient (AMB) | payer OTHER, SELFPAY ==
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
[2025-01-05 13:35] VITALS: BP 132/82; PULSE 78; RESP 16; TEMP 36.7; O2SAT 97; BMI 29.7
== END 2025-01-05 14:34 | disposition home or self-care (01) ==
PROVIDERS: PCP Internal Medicine
DX: M54.2 Cervicalgia (principal); V89.2XXD Person injured in unspecified motor-vehicle accident, traffic, subsequent encounter; S04.61XA Injury of acoustic nerve, right side, initial encounter; Z04.3 Encounter for examination and observation following other accident

== ENCOUNTER → 2025-01-05 13:31 | Outpatient (BNVA) | payer SELFPAY | PROVIDERS: PCP Internal Medicine | DX: M54.2 Cervicalgia (principal); H91.8X1 Other specified hearing loss, right ear; S04.60 Injury of acoustic nerve, unspecified side; V89.2XXD Person injured in unspecified motor-vehicle accident, traffic, subsequent encounter | CPT/HCPCS: 96127 ==

== ENCOUNTER 2025-01-22 10:06 | Outpatient (AMB) | payer OTHER, SELFPAY ==
[2025-01-22 10:09] VITALS: BP 116/80; PULSE 73; O2SAT 98; BMI 29.5
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
== END 2025-01-22 10:50 | disposition home or self-care (01) ==
LOC: HO.HMCH 10:07
PROVIDERS: PCP Internal Medicine; Visit Provider Internal Medicine
DX: H91.21 Sudden idiopathic hearing loss, right ear (principal); R51.9 Headache, unspecified; Z04.3 Encounter for examination and observation following other accident; V89.2XXD Person injured in unspecified motor-vehicle accident, traffic, subsequent encounter

== ENCOUNTER → 2025-01-22 10:06 | Outpatient (BNVA) | payer OTHER, SELFPAY | PROVIDERS: PCP Internal Medicine; Visit Provider Internal Medicine | DX: Z09 Encounter for follow-up examination after completed treatment for conditions other than malignant neoplasm (principal); H91.21 Sudden idiopathic hearing loss, right ear; R51.9 Headache, unspecified; Z13.31 Encounter for screening for depression; Z13.39 Encounter for screening examination for other mental health and behavioral disorders | CPT/HCPCS: 96127 ==

== ENCOUNTER 2025-02-16 08:37 | Outpatient (REF) | payer OTHER, SELFPAY | END 2025-02-16 08:38 | disposition home or self-care (01) | LOC: HO.SH 08:37 | DX: Z01.118 Encounter for examination of ears and hearing with other abnormal findings (principal); H90.41 Sensorineural hearing loss, unilateral, right ear, with unrestricted hearing on the contralateral side | CPT/HCPCS: 92557; 92567; 92588 ==

== ENCOUNTER 2025-04-08 14:34 | Outpatient (AMB) | payer OTHER, SELFPAY ==
[2025-04-08 14:36] VITALS: BP 92/60; PULSE 77; RESP 18; TEMP 36.3; O2SAT 97
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
== END 2025-04-08 15:04 | disposition home or self-care (01) ==
LOC: HO.HMCH 14:34
DX: H90.A31 Mixed conductive and sensorineural hearing loss, unilateral, right ear with restricted hearing on the contralateral side (principal); V89.2XXD Person injured in unspecified motor-vehicle accident, traffic, subsequent encounter; M54.2 Cervicalgia

== ENCOUNTER 2025-06-08 13:44 | Outpatient (AMB) | payer OTHER, SELFPAY ==
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
[2025-06-08 13:51] VITALS: BP 120/78; PULSE 65; RESP 18; TEMP 36.1; O2SAT 98; BMI 30.7
== END 2025-06-08 14:57 | disposition home or self-care (01) ==
LOC: HO.HMCH 13:45
DX: H90.A31 Mixed conductive and sensorineural hearing loss, unilateral, right ear with restricted hearing on the contralateral side (principal); V89.2XXD Person injured in unspecified motor-vehicle accident, traffic, subsequent encounter; M54.2 Cervicalgia